=== PATIENT | female | born 1980 | race African-American/Black ===

== ENCOUNTER 2016-12-23 11:03 | Emergency (ER) | payer OTHER ==
--- NOTE | ~2016-12-23 | US106 ---
[facility] A Service of [facility] RADIOLOGY TEXT RESULTS PATIENT: GENIE MALIN LOCATION: CFT[facility] : 84 UNIT #: [id number] AGE: [address]: Sarina Navarro APRN SEX: F ORDER DR: [id number] [facility] [address] [place], [place] [address] [id number] MR#: [id number] Acc #: [id number] NAME: GENIE MALIN : 1980 SEX: F STUDY DATE/TIME: 12/23/2016 13:47 UNIT: [facility] ROOM: STUDY DESCRIPTION: US Preg Uterus Transvaginal Attending Physician: Sarina Navarro A.P.R.N. Ordering Physician: Jeremi Singleton M.D. Primary Care Physician: [facility] MEDICAL IMAGING REPORT This report is preliminary unless electronic signature is present EXAM ultrasound transvaginal HISTORY Back pain for the past 3 days worsening today with vaginal discharge and positive test. Previous history of ectopic and left fallopian tube resection April 2016. TECHNIQUE Ultrasound evaluation was performed transvaginally with yeung-scale, color-flow and Doppler spectral waveform analysis. FINDINGS An intrauterine is seen. The gestational sac measures 7 mm in diameter corresponding to a gestational age of 5 weeks 3 days. A small pole is seen but no heart rate is identified as of yet. There is no evidence of free fluid in the pelvic cul-de-sac. The decidual reaction around the gestational sac appears normal. No complex adnexal masses are seen. The ovaries are normal in size and appear unchanged from the previous ultrasound in June 2016. IMPRESSION Intrauterine 5 weeks 3 days by gestational sac size. pole is identified. No heart tones are seen at this time. Consider followup sonography in 1-2 weeks. The adnexal regions are clear. No free fluid is seen in the pelvic cul-de-sac. Dictated by... Delgado Adames M.D. THIS IS AN ELECTRONICALLY VERIFIED REPORT Delgado Adames M.D. at 12/25/2016 11:00 AM [facility] A Service of [facility] RADIOLOGY TEXT RESULTS PATIENT: GENIE MALIN LOCATION: [facility] : 82 UNIT #: [id number] AGE: [address]: Sarina Navarro APRN SEX: F ORDER DR: Ny TD: 12/24/2016 10:22 JOB #: [id number] MEDICAL IMAGING REPORT Page 1 of 1 COPY
[~2016-12-23 11:03] MED LIST: BACTRIM DS TABL1 TA1 PO; CIPRO PO; NAPROSYN375 MG PO; PHENERGAN PO; PHENERGAN25 M1 DOB; PYRIDIUM PO
[2016-12-23 12:07] LABS: BASOPHIL% 0.7 % (0-2.5); EOSINOPHIL# 0.1 X10e3 (0-0.7); HEMATOCRIT 41.1 % (35.0-45.0); HEMOGLOBIN 13.6 gm/dL (12.0-16.0); LYMPHOCYTE# 1.7 X10e3 (1.0-3.5); LYMPHOCYTE% 32.8 % (17.0-45.0); MEAN CELL VOLUME 89.1 FL (83-96); MEAN CORPUSCULAR HEMOGLOBIN 29.4 PG (28-34); MEAN PLATELET VOLUME 9.9 FL (6.5-11.5); MONOCYTE# 0.5 X10e3 (0-1.0); MONOCYTE% 9.5 % (3.0-12.0); NEUTROPHIL# 2.9 X10e3 (1.5-7.1); PLATELET COUNT 192 X10e3 (140-420); RED BLOOD COUNT 4.61 X10e (3.90-5.30); RED CELL DISTRIBUTION WIDTH 12.6 % (11.0-15.5); WHITE BLOOD COUNT 5.3 X10e3 (4.0-10.5)
[2016-12-23 12:08] LABS: DIFF IND NO
[2016-12-23 12:16] LABS: URINE SOURCE CLEAN CATCH
[2016-12-23 12:22] LABS: URINE APPEARANCE TURBID; URINE BILIRUBIN NEG (NEG); URINE BLOOD 1+ (NEG); URINE COLOR YELLOW; URINE GLUCOSE NEG (NEG); URINE KETONE NEG (NEG); URINE LEUKOCYTE ESTERASE 3+ (NEG); URINE NITRATE NEG (NEG); URINE PH 5.5 (5-8); URINE PROTEIN TRACE (NEG); URINE SPECIFIC GRAVITY 1.023 (1.003-1.035); URINE UROBILINOGEN 0.2 MG/DL (NEG)
[2016-12-23 12:23] LABS: CULTURE INDICATED? YES; URINE BACTERIA AUWI 4+ (NEGATIVE); URINE SQUAMOUS EPITHELIAL CELL MANY /[HPF]; UWBCS1 AUWI INNUM (0-5)
[2016-12-23 12:42] LABS: BLOOD UREA NITROGEN 11 mg/dL (9-23); BUN/CREATININE RATIO 13.75; CALCIUM SERUM 9.5 mg/dL (8.4-10.2); CARBON DIOXIDE 28 mmol/L (22-31); CHLORIDE 102 mmol/L (100-111); CREATININE SERUM 0.8 mg/dL (0.6-1.4); GLOM FILT RATE Estimated ABOVE60 mL/min (>60); GLUCOSE FASTING 82 mg/dL (70-110); POTASSIUM 3.7 mmol/L (3.5-5.1); SODIUM 139 mmol/L (135-145)
[2016-12-28 14:27] LABS: CHLAMYDIA TRACH Not Detected (Not Detected); N GONOR Not Detected (Not Detected)
== END 2016-12-23 16:04 | disposition home or self-care (01) ==
LOC: CFTX 11:03
PROVIDERS: Nurse Practitioner
DX: O23.10 Infections of bladder in pregnancy, unspecified trimester (principal); A59.03 Trichomonal cystitis and urethritis
CPT/HCPCS: 36415; 76817; 80048; 81003; 84702; 85025; 87086; 87491; 87591; 87808; 87905; 96372; 99284; J0696

== ENCOUNTER 2017-01-24 23:38 | Emergency (ER) | payer OTHER | END 2017-01-25 00:39 | disposition home or self-care (01) | LOC: CED 23:38 | DX: O99.511 Diseases of the respiratory system complicating pregnancy, first trimester (principal); J04.0 Acute laryngitis; O99.89 Other specified diseases and conditions complicating pregnancy, childbirth and the puerperium; H10.9 Unspecified conjunctivitis; Z3A.09 9 weeks gestation of pregnancy | CPT/HCPCS: 87651; 99284 ==